=== PATIENT | male | born 1980 | race Caucasian/White ===

== ENCOUNTER 2024-12-05 15:01 | Inpatient (IN) | payer OTHER ==
[2024-12-05 16:35] VITALS: BMI 29.4
[2024-12-05] MEDS ORDERED: LOPERAMIDE HCL 2 MG CAPSULE PO PRN (17:22)
[2024-12-05] MEDS ORDERED: DICYCLOMINE HCL 10 MG CAPSULE PO PRN (17:22)
[2024-12-05] MEDS ORDERED: IBUPROFEN 400 MG TABLET (FP) PO PRN (17:22)
[2024-12-05] MEDS ORDERED: BENZONATATE 200 MG CAPSULE PO PRN (17:22)
[2024-12-05] MEDS ORDERED: POLYETHYLENE GLYCOL (HEALTHYLAX) 3350 17 GM PACKET PO PRN (17:22)
[2024-12-05] MEDS ORDERED: BENZOCAINE/MENTHOL (CHLORASEPTIC ) LOZENGE MM PRN (17:22)
[2024-12-05] MEDS ORDERED: ONDANSETRON *ODT* 4 MG TABLET SL PRN (17:22)
[2024-12-05] MEDS ORDERED: MAGNESIUM HYDROX 2400MG/30ML ORAL SUSPENSION 30 ML CUP PO PRN (17:22)
[2024-12-05] MEDS ORDERED: BISMUTH SUBSALICYLATE 524 MG/30 ML PO PRN (17:22)
[2024-12-05] MEDS ORDERED: ACETAMINOPHEN 325 MG TABLET (FP) PO PRN (17:22)
[2024-12-05] MEDS ORDERED: guaiFENesin 600 MG TABLET.ER (FP) PO PRN (17:22)
[2024-12-05] MEDS ORDERED: NALOXONE (NARCAN) HCL 4 MG/0.1 ML SPRAY NS PRN (17:22)
[2024-12-05] MEDS ORDERED: IBUPROFEN 600 MG TABLET (FP) PO PRN (17:22)
[2024-12-05] MEDS ORDERED: MAG HYDROX/AL HYDROX/SIMETH 30 ML UNIT-DOSE CUP PO PRN (17:22)
[2024-12-05] MEDS ORDERED: NICOTINE POLACRILEX 2 MG GUM BUC PRN (19:14)
[2024-12-05] MEDS: LORATADINE 10 MG TABLET PO SCH (19:57)
[2024-12-05] MEDS: THIAMINE 100 MG TABLET PO SCH (21:33)
[2024-12-05] MEDS: MELATONIN 5 MG TABLETS PO SCH (21:33)
[2024-12-05] MEDS: hydrOXYzine PAMOATE 25 MG CAPSULE (FP) PO PRN (21:33)
[2024-12-05] MEDS: QUEtiapine FUMARATE 25 MG TABLET PO ONE (21:33)
[2024-12-05] MEDS: METHOCARBAMOL 500 MG TABLET PO PRN (21:33)
[2024-12-06 06:46] VITALS: RESP 16
[2024-12-06 10:04] LABS: HEMATOCRIT 38.5 % (40.1-51.0); HEMOGLOBIN 12.4 g/dL (13.7-17.5); MCHC 32.2 g/dl (32.3-36.5); MEAN CELL VOLUME 92.3 fl (79.0-92.2); MEAN PLT VOLUME 9.8 fl (9.4-12.4); PLATELET COUNT 204 x10^3/uL (163-337); RDW 11.9 % (12.1-15.9)
[2024-12-06] MEDS: PRENATAL VITAMINS W/ FOLIC ACID TABLET (FP) PO SCH (10:45)
[2024-12-06 10:50] LABS: CHLORIDE 107 mmol/L (98-107); POTASSIUM 4.3 mmol/L (3.5-5.1); SODIUM 140 mmol/L (136-145)
[2024-12-06 10:58] LABS: ALBUMIN 2.9 g/dl (3.4-5.0); ANION GAP 3 mmol/L (4-13); BLOOD UREA NITROGEN 12.5 mg/dL (7-18); CALCIUM 8.5 mg/dL (8.5-10.1); CO2 31 mmol/L (21-32); GLUCOSE,RANDOM 95 mg/dL (74-106)
[2024-12-06 10:59] LABS: CREATININE 0.9 mg/dL (0.55-1.3); SGPT/ALT 36 U/L (13-61)
[2024-12-06 11:00] LABS: BILIRUBIN,TOTAL 0.4 mg/dL (0.2-1)
[2024-12-06 11:01] LABS: ALK PHOS 57 U/L (45-117); SGOT/AST 25 U/L (15-37)
[2024-12-06] MEDS ORDERED: diazePAM 5 MG TABLET PO PRN (11:23)
[2024-12-06] MEDS: diazePAM 5 MG TABLET PO SCH (11:39)
[2024-12-06] MEDS: ALBUTEROL SO4 HFA INHALER IH PRN (11:43)
[2024-12-06 17:45] VITALS: BP 117/73; PULSE 80; TEMP 98.7
[2024-12-06] MEDS ORDERED: QUEtiapine FUMARATE 50 MG TABLET PO SCH (22:00)
[2024-12-07] MEDS ORDERED: diazePAM 5 MG TABLET PO SCH (06:00)
[2024-12-08] MEDS ORDERED: diazePAM 5 MG TABLET PO SCH (06:00)
[2024-12-09] MEDS ORDERED: diazePAM 5 MG TABLET PO ONE (06:00)
== END 2024-12-06 17:27 | disposition left against medical advice (07) | DRG 770 ==
LOC: YASAS 15:01 → Y6N 18:10
PROVIDERS: ADMIT Allergy & Immunology; ATTEND Allergy & Immunology
PROC: HZ2ZZZZ Detoxification Services for Substance Abuse Treatment (ICD-10-PCS; principal; 2024-12-05)
DX: F10.230 Alcohol dependence with withdrawal, uncomplicated (principal); F14.10 Cocaine abuse, uncomplicated; F13.20 Sedative, hypnotic or anxiolytic dependence, uncomplicated; F17.210 Nicotine dependence, cigarettes, uncomplicated; F31.9 Bipolar disorder, unspecified; F19.282 Other psychoactive substance dependence with psychoactive substance-induced sleep disorder; F19.24 Other psychoactive substance dependence with psychoactive substance-induced mood disorder; J45.909 Unspecified asthma, uncomplicated; M54.50 Low back pain, unspecified; G89.29 Other chronic pain; F91.8 Other conduct disorders; Z91.199 Patient's noncompliance with other medical treatment and regimen due to unspecified reason; Z88.0 Allergy status to penicillin
CPT/HCPCS: 36415; 80053; 80305; 80307; 85027; 86780; 93005; 93010